=== PATIENT | female | born 1965 | race Caucasian/White ===

== ENCOUNTER 2017-03-09 09:45 | Emergency (ER) | payer BC ==
[2017-03-09 10:06] VITALS: BP 135/83
--- NOTE | 2017-03-09 11:19 | UC ---
Abdominal Pain Female HPI - HPI Summary HPI Summary: rectal bleeding x 2 days bright red blood in the stool x 2 days lower abdominal pain / cramping, no n/v/d/c no fever or chills, no dysuria , no vaginal bleeding - History of Current Complaint Chief Complaint: UCGI Stated Complaint: BLEEDING PERSONAL Time Seen by Provider: 03/09/17 10:17 Hx Obtained From: Patient Hx Last Menstrual Period: 02/15/17 ?: No Onset/Duration: Gradual Onset, Lasting Days - 2, Still Present Severity Initially: Moderate Severity Currently: Moderate Location: Suprapubic Radiates: No Character: Cramping Aggravating Factor(s): Other: - bm Alleviating Factor(s): Nothing Associated Signs and Symptoms: Positive: Blood in Stool. Negative: Diaphoresis , Fever, Cough, Chest Pain, Dizzy, Back Pain, Constipation, Urinary Symptoms, Decreased Appetite, Vaginal Bleeding, Vaginal Discharge, Nausea, Vomiting, Diarrhea Allergies/Adverse Reactions: Allergies Allergy/AdvReac Type Severity Reaction Status Date / Time No Known Allergies Allergy Verified 03/09/17 09:59 Home Medications: Home Medications Citalopram TAB* [CeleXA TAB*] 10 mg PO DAILY 03/09/17 [History Confirmed ] Mobijoint 2 cap PO DAILY 03/09/17 [History] PMH/Surg Hx/FS Hx/Imm Hx Psychological History: Depression - Surgical History Surgical History: Yes Surgery Procedure, Year, and Place: TONSILECTOMY. TUBAL LIGATION. CERVIX/ UTERUS - POLYPS REMOVED - Family History Known Family History: Positive: Hypertension - Social History Alcohol Use: Rare Substance Use Type: None Smoking Status (MU): Never Smoked Tobacco - Immunization History Most Recent Influenza Vaccination: January 2017 Review of Systems Constitutional: Negative Skin: Negative Eyes: Negative ENT: Negative Respiratory: Negative Cardiovascular: Negative Gastrointestinal: Abdominal Pain Genitourinary: Negative Is Patient Immunocompromised?: No All Other Systems Reviewed And Are Negative: Yes Physical Exam Triage Information Reviewed: Yes Appearance: Well-Appearing, No Pain Distress, Well-Nourished Vital Signs: Initial Vital Signs Temp 98.1 F 03/09/17 09:58 Pulse 56 03/09/17 09:58 Resp 16 03/09/17 09:58 BP 135/83 03/09/17 09:58 Pulse Ox 100 03/09/17 09:58 Vital Signs Reviewed: Yes Eyes: Positive: Conjunctiva Clear ENT: Positive: Normal ENT inspection, Hearing grossly normal, Pharynx normal, Pharyngeal erythema Neck: Positive: Supple, Nontender, No Lymphadenopathy Respiratory: Positive: Chest non-tender, Lungs clear, Normal breath sounds Cardiovascular: Positive: RRR, No Murmur, Pulses Normal Abdomen Description: Positive: Nontender, Soft. Negative: CVA Tenderness (R), CVA Tenderness (L), Distended, Guarding, Hernia @ Skin Exam: Normal UC Physical Exam Vital Signs On Initial Exam: Initial Vitals Temp Pulse Resp BP Pulse Ox 98.1 F 56 16 135/83 100 03/09/17 09:58 03/09/17 09:58 03/09/17 09:58 03/09/17 09:58 03/09/17 09:58 - Rectal Exam Rectal Exam: Normal Rectal Tone, Non-tender, No Mass, Other - no bleeding noted , no hemorrhods, normal stool without blood Diagnostics - Laboratory Diagnostic Studies Completed/Ordered: stool occult blood negtive by rectal exam. posive by obtaining stool from the toilet Abd Pain Female Course/Dx - Differential Dx/Diagnosis Provider Diagnoses: rectal bleeding Discharge - Discharge Plan Condition: Stable Disposition: HOME Patient Education Materials: Rectal Bleeding (ED) Referrals: Urban Garza MD [Primary Care Provider] - Dung House MD [Medical Doctor] - As Soon As Possible Additional Instructions: please call GI to be seen siddhartha go to ED if increase abdominal pain or increase in bleeding
== END 2017-03-09 11:16 | disposition home or self-care (01) ==
LOC: UCCORT 09:45
DX: K62.5 Hemorrhage of anus and rectum (principal); F32.9 Major depressive disorder, single episode, unspecified
CPT/HCPCS: 82270; 99212; G0463